=== PATIENT | female | born 1995 | race Caucasian/White ===

== ENCOUNTER 2017-03-22 19:43 | Emergency (ER) | payer OTHER | END 2017-03-22 22:45 | disposition home or self-care (01) | LOC: CFTX 19:43 → CED 19:43 | DX: T22.112A Burn of first degree of left forearm, initial encounter (principal); X10.2XXA Contact with fats and cooking oils, initial encounter; Y92.69 Other specified industrial and construction area as the place of occurrence of the external cause; Y99.0 Civilian activity done for income or pay | CPT/HCPCS: 16000; 99283 ==